=== PATIENT | male | born 2000 | race Caucasian/White ===

== ENCOUNTER 2025-06-05 17:11 | Emergency (ER) | payer OTHER, SELFPAY ==
[2025-06-05 17:13] VITALS: BP 110/69
[2025-06-05 18:04] VITALS: BMI 20.1
--- NOTE | 2025-06-05 18:15 | ED.GENMED ---
History of Present Illness
General
Chief Complaint: Abdominal Symptoms
Source: patient
Time Seen by Provider: 06/05/25 17:54
History of Present Illness
History of Present Illness:
This patient is a 25-year-old male with a history of gastroparesis who presents emergency department complaints of intractable nausea and nonbloody vomiting that started this morning continuous. He denies fever, chills, chest pain or pressure,
dyspnea, back pain. He states that his abdomen is 'sore' from repeated episodes of vomiting. He denies urinary symptoms, diarrhea, constipation, bleeding. He does have a mild headache without associated lightheadedness, numbness, focal weakness,
visual changes. He notes that on Friday he developed nasal congestion and a mild sore throat which continues. Patient states that he has a longstanding history of gastroparesis and that he has episodes like this in the past although it has been a
long time since this happened. He is also on medical marijuana and notes that he uses this typically twice a day.
Past History
Past History
ED Past Medical History: Seizures, Psychiatric (a/d, adhd) and Other (autism, gastroparesis)
ED Past Surgical History: Tonsilectomy
Patient has exhibited threatening behavior?: No
Social History
Tobacco: Smoker
Alcohol: Occasional
Drug: Marijuana (daily)
Personal:
Living: with family
Phy Exam
Physical Exam
Physical Exam:
GENERAL: Alert , in no apparent distress
EYE: pupils equal and reactive
NECK: Supple, no significant adenopathy.
ENT: o/p clr, mm dry
CARDIAC: Regular rate and rhythm .
LUNGS: Clear breath sounds bilaterally, no acute respiratory distress, no wheezes/rales/rhonchi
ABDOMEN: Soft, without focal tenderness, no r/g, no cvat
NEUROLOGICAL: Alert and oriented, no focal neuro deficits
SKIN: Warm and dry, skin intact.
MUSCULOSKELETAL: No edema, well perfused.
PSYCH: Normal and appropriate interaction.
Course
Orders/Labs/Results
Orders:
Orders
06/05/25 18:15
Cardiac Monitoring- Treatment ONCE
0.9% Sodium Chloride 1000 ml [Nss] 1,000 ml IV BOLUS
droPERidol [Inapsine] 1.25 mg IV NOW STA
06/05/25 18:19
Complete Blood Count/No Diff Urgent
Comprehensive Metabolic Panel Urgent
Lipase Urgent
Abnormal Lab Results
06/05/25
18:19
WBC 13.0 H 10^3/uL
(4.8-10.8)
BUN 23 H mg/dl
(9-20)
Glucose 105 H mg/dl
(70-99)
Albumin 5.1 H g/dl
(3.5-5.0)
06/05/25 18:19
06/05/25 18:19
Vital Signs
Initial and Last Documented VS:
Initial Vital Signs
Temp Pulse Resp BP Pulse Ox
98.5 F 78 16 110/69 99
06/05/25 17:13 06/05/25 17:13 06/05/25 17:13 06/05/25 17:13 06/05/25 17:13
Last Documented Vital Signs
Temp Pulse Resp BP Pulse Ox
98.5 F 93 18 111/68 99
06/05/25 17:13 06/05/25 20:00 06/05/25 20:00 06/05/25 20:00 06/05/25 18:15
*Pulse Oximetry
SaO2: 99
Oxygen Mode of Delivery: Room air
Patient hypoxic: no
*Critical Care Note
Total Time (30-74mins, 75-104mins- exclusive of procedures): Not Applicable
Update Note
Update Note:
Patient presents to the Emergency Department with __nausea vomiting
Number and Complexity of Problems Addressed at the Encounter
� Chronic conditions affecting care:
� Acute Exacerbation and/or Progression of Chronic Illness:
� Differential Diagnosis includes: But not limited to gastroparesis exacerbation, gastroenteritis, pancreatitis, CHS, etc. etc.
Amount and/or Complexity of Data to be Reviewed and Analyzed
� I performed an independent evaluation of and my interpretation is:
EKG:
CT:
Xrays:
Laboratory Studies: Mild leukocytosis likely related to vomiting, otherwise unremarkable
Other:
� Review of other/old records reveals:
� Clinical information was obtained by an independent historian:mom and daughter who is besdide
� Prescriptions/Medications Considered but not given:
� Further testing considered but not performed:
Risk of Complications and/or Morbidity or Mortality of Patient Management
� Social determinants of health affecting care:
� Discussion with other providers (PCP, Hospitalists, Consultants, etc):
� Escalation of care including admission/observation vs risk of discharge considered: Several reassessments patient is now feeling much better, tolerated p.o., walking around the room asking to be discharged. Nontoxic
well-appearing. Strongly recommend patient pursue outpatient continue GI care. Symptoms may be secondary to CHS however gastroparesis also consideration.
ED Attending Note
-
Portions of this chart may have been created with voice recognition software.� Occasional wrong word or��sound alike� substitutions may have occurred due to the inherent limitations of voice recognition software.
Discharge Plan
Departure
Patient Disposition: Home (Routine Discharge)
Date of Disposition: 06/05/25
Time of Disposition: 20:16
Patient with high blood pressure during this ER visit?: No
Condition: Good
Discharge Problem:
Vomiting
Instructions: Nausea and Vomiting, Adult (DC)
Prescriptions:
No Action
cephalexin 500 mg capsule
500 mg PO TID 10 Days Qty: 30 0RF
mupirocin 2 % ointment
1 applic topical TID Qty: 15 0RF
Referrals:
August Juarez, [Family Provider, Family Practice]
Activity Restrictions/Additional Instructions:
IF YOU DEVELOP RECURRENT VOMITING, ANY BLEEDING, ABDOMINAL PAIN, FEVER, CHEST PAIN, SHORTNESS OF BREATH, DIZZINESS, OR OTHER WORRISOME SIGNS, PLEASE RETURN TO THE ER IMMEDIATELY! I RECOMMEND THAT YOU FOLLOW-UP WITH YOUR GI DOCTOR PROMPTLY.
Interventions
Interventions:
*Risk Screen - Suicide Last Done: 06/05/25 17:13
*General Assessment Last Done: 06/05/25 17:59
*Neglect/Abuse Screening Last Done: 06/05/25 17:13
*ED- Fall Risk Assessment Last Done: 06/05/25 17:58
*ED COVID-19 Vaccine History Last Done: 06/05/25 17:58
*ED Influenza Vaccine History Last Done: 06/05/25 17:58
KI-Ogmlqe-Xdxqruxjne Assessment Last Done: 06/05/25 17:59
Discharge Date and Time
Print Language: [place]
[2025-06-05] MEDS: INAPSINE 1.25 MG IV (18:21)
[2025-06-05] MEDS: NSS 1000 IV (18:27)
[2025-06-05 18:29] LABS: Hematocrit 45.0 % (39.0-52.0); Hemoglobin 15.4 g/dL (13.0-18.0); Mean Corp Hgb Conc. 34.2 g/dL (33.0-37.0); Mean Corpuscular Volume 90.4 fL (80.0-94.0); Platelet Count 187 10^3/uL (130-400); Red Cell Dist. Width 12.6 % (11.5-14.5)
[2025-06-05 18:44] LABS: ALT (SGPT) 34 U/L (0-50); AST (SGOT) 25 U/L (17-59); Albumin 5.1 g/dl (3.5-5.0); Alkaline Phosphatase 64 U/L (38-126); Blood Urea Nitrogen 23 mg/dl (9-20); Calcium 9.8 mg/dl (8.4-10.2); Carbon Dioxide 28 mmol/L (22-30); Chloride 103 mmol/L (98-107); Estimated Creatinine Clearance > 125 ml/min; Glucose 105 mg/dl (70-99); Lipase 233 U/L (23-300); Potassium 4.3 mmol/L (3.5-5.1); Sodium 141 mmol/L (135-145); Total Protein 7.5 g/dl (6.3-8.2); eGFR > 60.00
[2025-06-05 18:57] VITALS: BP 122/66
[2025-06-05 19:00] VITALS: BP 117/74
[2025-06-05 20:00] VITALS: BP 111/68
== END 2025-06-05 20:27 | disposition home or self-care (01) ==
LOC: EMR 17:11
PROVIDERS: EMERGENCY PHYSICIAN Emergency Medicine; FAMILY PHYSICIAN Family Medicine
DX: R11.10 Vomiting, unspecified (principal); K31.84 Gastroparesis; F84.0 Autistic disorder; F90.9 Attention-deficit hyperactivity disorder, unspecified type; F41.9 Anxiety disorder, unspecified; F32.A Depression, unspecified; F17.200 Nicotine dependence, unspecified, uncomplicated
CPT/HCPCS: 99284; 96374; 96361; 80053; 83690; 85027; J1790